=== PATIENT | female | born 1975 | race Hispanic/Latino ===

== ENCOUNTER 2017-12-26 10:02 | Emergency (ER) | payer OTHER ==
[2017-12-26 10:10] VITALS: BP 140/89
--- NOTE | 2017-12-26 12:08 | Emergency Department Report ---
Blank Doc - Documentation Documentation: Patient is a 6-year-old female who is presenting with cough, congestion for the past 4 days. Patient states that she has a productive cough of green sputum and some green nasal drainage. Patient states she also has a sore throat and pain in her anterior neck secondary lymph node swelling. Patient has body aches and nausea associated with these pains. 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 Patient does have a lesion with some erythema surrounding it in this area. Patient will have a chest x-ray and rapid strep done here in emergency department patient be reassessed.
--- NOTE | 2017-12-26 12:19 | Emergency Department Report ---
Minor Respiratory - HPI Chief Complaint: Upper Respiratory Infection Stated Complaint: BODY ACHES, LUMP IN THROAT Time Seen by Provider: 12/26/17 12:01 Duration: 4 Days Pain Location: Ear (nodule to posterior left ear), Other (generalized body aches ) Severity: moderate Minor Respiratory: Yes Able to Tolerate Fluids, Yes Ear Pain (posterior left ear nodule), No Rhinorrhea, No Sore Throat, No Cough, No Sick Contacts, No Hemoptysis, No Chest Pain, No Shortness of Breath, No Fever Other History: This is a 42-year-old female who is presenting with cough, congestion, and generalized body aches for 4 days. Patient states that she has a productive cough of green sputum and some green nasal drainage. Patient states she also has a sore throat and pain in her anterior neck secondary lymph node swelling. Patient has body aches and nausea associated with these pains. 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 ED Review of Systems ROS: Stated complaint: BODY ACHES, LUMP IN THROAT Other details as noted in HPI Constitutional: denies: chills, fever ENT: throat pain, congestion. denies: ear pain, dental pain, hearing loss, epistaxis Respiratory: cough. denies: shortness of breath, wheezing Cardiovascular: denies: chest pain, palpitations Gastrointestinal: nausea. denies: abdominal pain, vomiting, diarrhea Musculoskeletal: myalgia (generalized body aches). denies: back pain, joint swelling, arthralgia Skin: lesions (lesion posterior left ear ). denies: rash Neurological: denies: headache, weakness, numbness, paresthesias Psychiatric: denies: anxiety, depression ED Past Medical Hx - Past Medical History Previous Medical History?: No - Surgical History Past Surgical History?: Yes Additional Surgical History: Gastric Bypass, partial gastrectomy - Social History Smoking Status: Current Every Day Smoker Substance Use Type: None - Medications Home Medications: Home Medications Medication Instructions Recorded Confirmed Last Taken Type Doxycycline Hyclate [Doxycycline 100 mg PO Q12HR #20 tab 12/26/17 Unknown Rx Hyclate TAB] Minor Respiratory Exam - Exam General: Vital signs noted. No distress. Alert and acting appropriately. HEENT: Yes Moist Mucous Membranes, Yes Rhinorrhea (turbinated mildly congested) , No Pharyngeal Erythema, No Pharyngeal Exudates, No Conjuctival Injection, No Frontal Tenderness, No Maxillary Tenderness Ear: Neither TM Bulge, Neither TM Erythema, Neither EAC Pain, Neither EAC Discharge Neck: Yes Adenopathy (left posterior cervical tenderness and swelling, mobile, tenderness), Yes Supple Lungs: Yes Good Air Exchange, Yes Cough, No Wheezes, No Ronchi, No Stridor, No Labored Respirations, No Retractions, No Use of Accessory Muscles, No Other Abnormal Lung Sounds Heart: Yes Regular, No Murmur Abdomen: Yes Normal Bowel Sounds, No Tenderness, No Peritoneal Signs Skin: No Rash, No Edema (0.5 cm nodule posterior left ear with some erythema surrounding tissue.) Neurologic: Alert and oriented, no deficits. Musculoskeletal: Unremarkable. ED Course Vital Signs 12/26/17 10:08 Temperature 97.6 F Pulse Rate 87 Respiratory 18 Rate Blood Pressure 140/89 O2 Sat by Pulse 98 Oximetry ED Medical Decision Making - Radiology Data Radiology results: report reviewed ROUTINE CHEST, TWO VIEWS: HISTORY: Productive cough. The trachea, heart, mediastinal contour, lung cortez and bony thorax are unremarkable. IMPRESSION: Unremarkable chest x-ray. - Medical Decision Making 42 y.o. female that presents with URI symptoms, generalized body aches and left ear posterior nodule x 4 days. Patient examined by me and stable. No distress noted. Vitals normal. Chest xray has been obtained and dictated by radiologist. No acute cardiopulmonary findings. Obtained rapid strep, negative. Reviewed results with patient. Start doxycycline for insect bite. Discharged home stable. Encouraged to do supportive care for URI. Follow up with Primary Care Provider in 2-3 days. Critical care attestation.: If time is entered above; I have spent that time in minutes in the direct care of this critically ill patient, excluding procedure time. ED Disposition Clinical Impression: Nodule of left external ear Insect bite Qualifiers: Encounter type: initial encounter Qualified Code(s): W57.XXXA - Bitten or stung by nonvenomous insect and other nonvenomous arthropods, initial encounter Disposition: TO HOME OR SELFCARE Is pt being admited?: No Does the pt Need Aspirin: No Condition: Stable Instructions: Insect Bite or Sting (ED) Additional Instructions: Complete full course of antibiotics as prescribed. Avoid drinking alcohol while taking antibiotics for 24 hours after completion. Follow-up with primary care provider in 2-3 days. Prescriptions: Doxycycline Hyclate [Doxycycline Hyclate TAB] 100 mg PO Q12HR #20 tab Referrals: [facility] [Outside] - 3-5 Days [facility] [Outside] - 3-5 Days [facility] [Outside] - 3-5 Days Time of Disposition: 15:46 Print Language: POLISH
--- NOTE | 2017-12-26 13:14 | XRay Report ---
ROUTINE CHEST, TWO VIEWS: HISTORY: Productive cough. The trachea, heart, mediastinal contour, lung cortez and bony thorax are unremarkable. IMPRESSION: Unremarkable chest x-ray.
== END 2017-12-26 15:51 | disposition home or self-care (01) ==
LOC: ED 10:02
DX: S00.462A Insect bite (nonvenomous) of left ear, initial encounter (principal); F17.200 Nicotine dependence, unspecified, uncomplicated; W57.XXXA Bitten or stung by nonvenomous insect and other nonvenomous arthropods, initial encounter; Y93.89 Activity, other specified; Y92.89 Other specified places as the place of occurrence of the external cause; Y99.8 Other external cause status
CPT/HCPCS: 71046; 87116; 87430; 99283